=== PATIENT | female | born 1955 | race Caucasian/White ===

== ENCOUNTER 2019-08-31 07:55 | Emergency (ER) | payer OTHER ==
[2019-08-31] MEDS ORDERED: SODIUM CHLORIDE 0.9% 500 ML 500 ML IV STA (07:58)
--- NOTE | 2019-08-31 08:03 | ED ---
General Adult HPI - General Stated complaint: Poss Stroke Time Seen by Provider: 08/31/19 07:55 Source: patient, EMS, RN notes reviewed, old records reviewed - History of Present Illness Initial comments: This is a 63-year-old female who presents to the emergency department with slurred speech. Patient woke up at 5:30 this morning felt fine at 6:30 she started having slurred speech according to the per EMS. 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 Patient states she has a left-sided headache as well. Patient denies any visual disturbance. Patient is very anxious and according to EMS she was hyperventilating at the scene. At this point time there is no other history available. - Related Data Allergies Allergy/AdvReac Type Severity Reaction Status Date / Time No Known Allergies Allergy Verified 08/31/19 08:15 Review of Systems ROS Statement: Those systems with pertinent positive or pertinent negative responses have been documented in the HPI. ROS Other: All systems not noted in ROS Statement are negative. General Exam - General Exam Comments Initial Comments: GENERAL: Patient is well-developed and well-nourished. Patient is nontoxic and well- hydrated and is in mild distress. ENT: Neck is soft and supple. No significant lymphadenopathy is noted. Oropharynx is clear. Moist mucous membranes. Neck has full range of motion without eliciting any pain. EYES: The sclera were anicteric and conjunctiva were pink and moist. Extraocular movements were intact and pupils were equal round and reactive to light. Eyelids were unremarkable. PULMONARY: Unlabored respirations. Good breath sounds bilaterally. No audible rales rhonchi or wheezing was noted. CARDIOVASCULAR: There is a regular rate and rhythm without any murmurs gallops or rubs. ABDOMEN: Soft and nontender with normal bowel sounds. No palpable organomegaly was noted. There is no palpable pulsatile mass. SKIN: Skin is clear with no lesions or rashes and otherwise unremarkable. NEUROLOGIC: Unable to assess orientation since she's not answering all questions because she is so anxious. Difficult to assess if she is altered but states she was altered this morning and not answering questions appropriately. Cranial nerves II through XII are grossly intact. Motor and sensory are also intact and did not notice any decreased auto accessories installer strength on the right. Patient's speech was slurred. MUSCULOSKELETAL: Normal extremities with adequate strength and full range of motion. No lower extremity swelling or edema. No calf tenderness. LYMPHATICS: No significant lymphadenopathy is noted PSYCHIATRIC: Patient is very anxious and tearful. Course Vital Signs 08/31/19 08/31/19 08/31/19 07:59 08:00 08:09 Temperature 98.2 F 98.2 F Pulse Rate 66 66 66 Respiratory 18 18 18 Rate Blood Pressure 119/73 119/73 119/73 O2 Sat by Pulse 98 98 98 Oximetry 08/31/19 08/31/19 08/31/19 08:15 08:21 08:30 Temperature Pulse Rate 62 70 65 Respiratory 18 17 16 Rate Blood Pressure 116/54 124/75 124/78 O2 Sat by Pulse 98 95 93 L Oximetry 08/31/19 08/31/19 08/31/19 09:00 09:30 10:00 Temperature Pulse Rate 79 79 75 Respiratory 17 17 17 Rate Blood Pressure 110/90 138/78 O2 Sat by Pulse 91 L 92 L 93 L Oximetry 08/31/19 08/31/19 08/31/19 10:30 10:38 10:43 Temperature Pulse Rate 81 73 Respiratory 18 18 Rate Blood Pressure 147/71 142/88 O2 Sat by Pulse 87 L 86 L 96 Oximetry 08/31/19 11:13 Temperature 97.8 F Pulse Rate 74 Respiratory 16 Rate Blood Pressure 171/76 O2 Sat by Pulse 92 L Oximetry Medical Decision Making - Medical Decision Making A stroke was called immediately EKG shows normal sinus rhythm at 60 bpm MD interval 162 QRS is 90 QT interval 424 QTC is 424. Patient's EKG shows no ST segment elevation or depression. informed us that the patient been having symptoms of left-sided headache with intermittent confusion over the last 6-8 weeks. Patient also has a past history of lung cancer. I spoke with Dr. Rubio and Dr. Cuellar and they both recommended the patient be transferred so I spoke with [facility] emergency Department at [place] and they accepted the transfer. Patient will be transferred to [facility] in [place] because the requested this. Patient received Decadron while in the emergency department. Patient remained somewhat confused while in the emergency department states this is how she has been on and off for the last 8 weeks. Patient was also very anxious at one point I did give her some Ativan. After arrangements had been made for the patient to be transferred Dale Haley [place] came out and decided to change his mind at which point time we called the [facility] because that is with her wanted the patient to go and was spoke with them over the next hour to an hour and a half and they eventually accepted the patient. However did not allow us to transfer the patient immediately because he did not have a bed available but they stated one bed will become available within an hour. - Lab Data Result diagrams: 08/31/19 08:02 08/31/19 08:02 Lab Results 08/31/19 08/31/19 08/31/19 Range/Units 08:02 08:02 08:02 WBC 7.9 (3.8-10.6) k/uL RBC 4.18 (3.80-5.40) m/uL Hgb 11.5 (11.4-16.0) gm/dL Hct 36.1 (34.0-46.0) % MCV 86.6 (80.0-100.0) fL MCH 27.6 (25.0-35.0) pg MCHC 31.9 (31.0-37.0) g/dL RDW 14.1 (11.5-15.5) % Plt Count 374 (150-450) k/uL Neutrophils % 69 % Lymphocytes % 21 % Monocytes % 4 % Eosinophils % 3 % Basophils % 0 % Neutrophils # 5.4 (1.3-7.7) k/uL Lymphocytes # 1.7 (1.0-4.8) k/uL Monocytes # 0.3 (0-1.0) k/uL Eosinophils # 0.2 (0-0.7) k/uL Basophils # 0.0 (0-0.2) k/uL PT 22.0 H (9.0-12.0) sec INR 2.3 H (<1.2) APTT 36.5 H (22.0-30.0) sec Sodium 137 (137-145) mmol/L Potassium 4.9 (3.5-5.1) mmol/L Chloride 106 (98-107) mmol/L Carbon Dioxide 19 L (22-30) mmol/L Anion Gap 12 mmol/L BUN 26 H (7-17) mg/dL Creatinine 0.81 (0.52-1.04) mg/dL Est GFR (CKD-EPI)AfAm >90 (>60 ml/min/1.73 sqM) Est GFR (CKD-EPI)NonAf 79 (>60 ml/min/1.73 sqM) Glucose 172 H (74-99) mg/dL POC Glucose (mg/dL) (75-99) mg/dL POC Glu Bushing [employer] Operator ID Calcium 9.5 (8.4-10.2) mg/dL Total Bilirubin 0.3 (0.2-1.3) mg/dL AST 24 (14-36) U/L ALT 16 (4-34) U/L Alkaline Phosphatase 102 (38-126) U/L Troponin I (0.000-0.034) ng/mL Total Protein 7.8 (6.3-8.2) g/dL Albumin 4.2 (3.5-5.0) g/dL Urine Color Urine Appearance (Clear) Urine pH (5.0-8.0) Ur Specific Orange (1.001-1.035) Urine Protein (Negative) Urine Glucose (UA) (Negative) Urine Ketones (Negative) Urine Blood (Negative) Urine Nitrite (Negative) Urine Bilirubin (Negative) Urine Urobilinogen (<2.0) mg/dL Ur Leukocyte Esterase (Negative) 08/31/19 08/31/19 08/31/19 Range/Units 08:02 08:35 08:37 WBC (3.8-10.6) k/uL RBC (3.80-5.40) m/uL Hgb (11.4-16.0) gm/dL Hct (34.0-46.0) % MCV (80.0-100.0) fL MCH (25.0-35.0) pg MCHC (31.0-37.0) g/dL RDW (11.5-15.5) % Plt Count (150-450) k/uL Neutrophils % % Lymphocytes % % Monocytes % % Eosinophils % % Basophils % % Neutrophils # (1.3-7.7) k/uL Lymphocytes # (1.0-4.8) k/uL Monocytes # (0-1.0) k/uL Eosinophils # (0-0.7) k/uL Basophils # (0-0.2) k/uL PT (9.0-12.0) sec INR (<1.2) APTT (22.0-30.0) sec Sodium (137-145) mmol/L Potassium (3.5-5.1) mmol/L Chloride (98-107) mmol/L Carbon Dioxide (22-30) mmol/L Anion Gap mmol/L BUN (7-17) mg/dL Creatinine (0.52-1.04) mg/dL Est GFR (CKD-EPI)AfAm (>60 ml/min/1.73 sqM) Est GFR (CKD-EPI)NonAf (>60 ml/min/1.73 sqM) Glucose (74-99) mg/dL POC Glucose (mg/dL) 160 H (75-99) mg/dL POC Glu Bushing [employer] Operator ID Bowling, Ti[place] Calcium (8.4-10.2) mg/dL Total Bilirubin (0.2-1.3) mg/dL AST (14-36) U/L ALT (4-34) U/L Alkaline Phosphatase (38-126) U/L Troponin I <0.012 (0.000-0.034) ng/mL Total Protein (6.3-8.2) g/dL Albumin (3.5-5.0) g/dL Urine Color Light Yellow Urine Appearance Clear (Clear) Urine pH 5.0 (5.0-8.0) Ur Specific Orange 1.010 (1.001-1.035) Urine Protein Negative (Negative) Urine Glucose (UA) Negative (Negative) Urine Ketones Negative (Negative) Urine Blood Negative (Negative) Urine Nitrite Negative (Negative) Urine Bilirubin Negative (Negative) Urine Urobilinogen <2.0 (<2.0) mg/dL Ur Leukocyte Esterase Negative (Negative) Critical Care Time Critical Care Time: Yes Total Critical Care Time: 35 Disposition Clinical Impression: Intracerebral mass Disposition: OTHER INSTITUTION NOT DEFINED Referrals: Luis Marcelo DO [Primary Care Provider] - 1-2 days Time of Disposition: 09:52 - Out of Hospital Transfer - Req. Specs Out of Hospital Transfer - Requested Specifics: Other Emergency Center ([facility])
[2019-08-31 08:16] LABS: Basophils % (A) 0 %; Eosinophils # (A) 0.2 k/uL (0-0.7); Eosinophils % (A) 3 %; HCT 36.1 % (34.0-46.0); HGB 11.5 gm/dL (11.4-16.0); Lymphocytes # (A) 1.7 k/uL (1.0-4.8); Lymphocytes % (A) 21 %; MCH 27.6 pg (25.0-35.0); MCHC 31.9 g/dL (31.0-37.0); MCV 86.6 fL (80.0-100.0); Mean Platelet Volume 7.2; Monocytes # (A) 0.3 k/uL (0-1.0); Monocytes % (A) 4 %; Neutrophils # (A) 5.4 k/uL (1.3-7.7); Neutrophils % (A) 69 %; Platelet Count 374 k/uL (150-450); RBC 4.18 m/uL (3.80-5.40); RDW 14.1 % (11.5-15.5); WBC 7.9 k/uL (3.8-10.6)
[2019-08-31 08:27] LABS: INR 2.3 (<1.2); Partial Thromboplastin Time 36.5 sec (22.0-30.0)
--- NOTE | 2019-08-31 08:28 | CT ---
EXAMINATION TYPE: CT brain wo con for TPA DATE OF EXAM: 08/31/2019 HISTORY: Slurred speech, MARAVILLA CT DLP: 1130.8 mGycm. Automated Exposure Control for Dose Reduction was Utilized. TECHNIQUE: CT scan of the head is performed without contrast. COMPARISON: None. FINDINGS: There is no acute intracranial hemorrhage identified. There is suspicious left parietal i ntraparenchymal lesion measuring 1.6 x 2.0 cm AP diameter axial image 35 x 2.0 cm craniocaudal diamet er coronal image 53 with surrounding hypodensity or vasogenic edema. Midline shift up to nearly 7 mm at axial image 33 noted. Ventricles and sulci are normal in size. The globes are intact and the visu alized sinuses are clear. IMPRESSION: No acute intracranial hemorrhage or midline shift. There is 2.0 cm left parietal intrap arenchymal mass with local mass effect and midline shift. Neoplasm is strongly suspected. Metastatic disease would be favored. Clinical correlation and follow-up nonemergent contrast enhanced MRI study is advised.
[2019-08-31 08:34] LABS: ALT 16 U/L (4-34); AST 24 U/L (14-36); African American GFR (CKD) >90 (>60 ml/min/1.73 sqM); Albumin 4.2 g/dL (3.5-5.0); Alkaline Phosphatase 102 U/L (38-126); Anion Gap 12 mmol/L; Blood Urea Nitrogen 26 mg/dL (7-17); Calcium 9.5 mg/dL (8.4-10.2); Carbon Dioxide 19 mmol/L (22-30); Chloride 106 mmol/L (98-107); Glucose 172 mg/dL (74-99); Non-African American GFR(CKD) 79 (>60 ml/min/1.73 sqM); Potassium 4.9 mmol/L (3.5-5.1); Sodium 137 mmol/L (137-145); Total Bilirubin 0.3 mg/dL (0.2-1.3); Total Protein 7.8 g/dL (6.3-8.2)
[2019-08-31 08:39] LABS: Glucose,Whole Blood 160 mg/dL (75-99)
[2019-08-31 08:42] LABS: Appearance,Urine Clear (Clear); Bilirubin,Urine Negative (Negative); Blood,Urine Negative (Negative); Color,Urine Light Yellow; Glucose,Urine (UA) Negative (Negative); Ketones,Urine Negative (Negative); Leukocyte Esterase,Urine Negative (Negative); Nitrite,Urine Negative (Negative); Protein,Urine Negative (Negative); Urobilinogen,Urine <2.0 mg/dL (<2.0)
[2019-08-31] MEDS ORDERED: DEXAMETHASONE SOD PHOSPHATE 20 MG in DEXTROSE 5% IN WATER 50 ML IV STA ×2 (08:51)
[2019-08-31] MEDS ORDERED: LORazepam 2 MG/ML INJ IV STA (09:02)
--- NOTE | 2019-08-31 09:29 | CT ---
EXAMINATION TYPE: CT angio head neck DATE OF EXAM: 08/31/2019 HISTORY: MARAVILLA, slurred speech COMPARISON: CT DLP: 934.8 mGycm. Automated Exposure Control for Dose Reduction was Utilized. TECHNIQUE: CTA scan of the neck is performed with IV Contrast, patient injected with 65 mL of Isovue 370, axial images are obtained, coronal and sagittal reformatted images are reviewed. Three-D recons tructed images are created on an independent workstation and reviewed. Source images are reviewed. FINDINGS: Carotid/Vascular Structures: There is a three-vessel arch. Vertebral arteries are codominant. Common carotid arteries bifurcate normally into internal and external Cervical of Tran: Vertebral basilar system appears normal. Posterior cerebral vasculature is unrema rkable. Internal carotid arteries bifurcate normally into A1 and M1 segments. A2 segments are normal. The anterior communicating artery is patent. Left Posterior communicating artery is patent. Right po sterior communicating artery is patent. Other: Lung apices appear clear. Portion of the thyroid visualized is normal. Patient suspected neoplasm in the left parietal-occipital junction is faintly peripherally enhancing with irregular internal border. The vasogenic edema within the brain with some minimal midline shift and compression lateral ventricle is evident. IMPRESSION: 1. No flow-limiting stenosis bilateral carotid bifurcations. 2. Normal upper [place] of Tran 3. Suspected left parietal-occipital junction mass.
--- NOTE | 2019-08-31 09:30 | XR ---
EXAMINATION TYPE: XR chest 2V DATE OF EXAM: 08/31/2019 COMPARISON: None INDICATION: Slurred speech inability to articulate TECHNIQUE: Frontal and lateral views of the chest are obtained. FINDINGS: The heart size is mildly prominent. The pulmonary vasculature is normal. No suspicious consolidations or infiltrates are evident. IMPRESSION: 1. No acute pulmonary process.
[2019-08-31] MEDS ORDERED: ONDANSETRON 4 MG/2 ML VIAL IVP STA (10:27)
[2019-08-31 12:05] VITALS: TEMP 98.7
[2019-08-31 14:17] VITALS: BP 94/55; PULSE 70; RESP 18
== END 2019-08-31 13:54 | disposition other institution (70) ==
LOC: EC 07:55
DX: G93.89 Other specified disorders of brain (principal); R51 Headache; R41.0 Disorientation, unspecified; R47.81 Slurred speech; R53.1 Weakness; R06.4 Hyperventilation; Z85.118 Personal history of other malignant neoplasm of bronchus and lung
CPT/HCPCS: 36415; 93005; 80053; 84484; 85025; 85610; 85730; 81003; 71046; 70496; 70450; 70498; 96365; 96375; 96361; 99291; J1100; J2405; Q9967

== ENCOUNTER 2019-09-19 03:03 | Emergency (ER) | payer OTHER ==
[2019-09-19] MEDS ORDERED: DEXAMETHASONE SOD PHOSPHATE 10 MG/ML 1 ML VIAL IV STA (03:06)
[2019-09-19] MEDS ORDERED: Kcentra PER PHARMACY 1 EACH MISC MISCELLANE PRN (03:06)
[2019-09-19] MEDS ORDERED: LABETALOL 5 MG/ML VIAL MDV IVP STA (03:06)
[2019-09-19] MEDS ORDERED: SODIUM CHLORIDE 0.9% 1,000 ML IV STA ×2 (03:06→05:09)
[2019-09-19 03:10] LABS: Glucose,Whole Blood 372 mg/dL (75-99)
--- NOTE | 2019-09-19 03:12 | ED ---
Altered Mental Status HPI - General Stated Complaint: poss stroke Time Seen by Provider: 09/19/19 03:06 Source: RN notes reviewed, old records reviewed Mode of arrival: EMS Limitations: altered mental status, physical limitation - History of Present Illness Initial Comments: This is a 63-year-old female presents DF for evaluation of unresponsiveness and new seizure-like activity. Patient is a complex recent medical history including excision of brain mass. Patient excision of brain mass to [facility] earlier this month. EMS was called patient's also she has had slurred speech throughout the day patient had slurred speech against night unable to find words did call EMS patient began to become decreased level responsiveness EMS arrived patient did have seizure-like activity prior to arrival in emergency department. Patient was upon postictal unable to speak here in the ER never any complaints test in her EMS never complaints chest pain headache or abdominal pain. Again patient is recently postop of brain tumor excision. History obtained from EMS and patient's prior charting MD Complaint: altered mental status, confusion, decreased responsiveness, other (?postIctal?) -: hour(s) Severity: severe Consistency of Symptoms: getting worse Context: seizure disorder (no history, had seizure today), other (slurred speech) Associated Symptoms: denies other symptoms (unable to provide history) - Related Data Allergies Allergy/AdvReac Type Severity Reaction Status Date / Time No Known Allergies Allergy Verified 08/31/19 08:15 Review of Systems ROS Statement: Those systems with pertinent positive or pertinent negative responses have been documented in the HPI. ROS Other: All systems not noted in ROS Statement are negative. Past Medical History Past Medical History: Atrial Fibrillation, Cancer Additional Past Medical History / Comment(s): Lung CA 2018 History of Any Multi-Drug Resistant Organisms: None Reported Past Surgical History: Cardiac Ablation, Section, Hysterectomy Additional Past Surgical History / Comment(s): Upper left lung lobectomy 2018 Past Psychological History: No Psychological Hx Reported Smoking Status: Never smoker Past Alcohol Use History: None Reported Past Drug Use History: None Reported General Exam Limitations: altered mental status, physical limitation General appearance: obtunded, in distress, obese Head exam: Present: atraumatic, normocephalic, normal inspection Eye exam: Present: normal appearance, PERRL, EOMI. Absent: scleral icterus, conjunctival injection, periorbital swelling ENT exam: Present: normal exam, mucous membranes moist Neck exam: Present: normal inspection. Absent: tenderness, meningismus, lym phadenopathy Respiratory exam: Present: decreased breath sounds. Absent: respiratory distress, wheezes, rales, rhonchi, stridor Cardiovascular Exam: Present: normal rhythm, tachycardia, normal heart sounds. Absent: systolic murmur, diastolic murmur, rubs, gallop, clicks GI/Abdominal exam: Present: soft, normal bowel sounds. Absent: distended, tenderness, guarding, rebound, rigid Extremities exam: Present: normal inspection, full ROM, normal capillary refill. Absent: tenderness, pedal edema, joint swelling, calf tenderness Back exam: Present: normal inspection Neurological exam: Present: altered Skin exam: Present: warm, dry, intact, normal color. Absent: rash Course Vital Signs 09/19/19 09/19/19 09/19/19 03:05 03:38 04:36 Temperature 97.5 F L Pulse Rate 131 H 37 L 60 Respiratory 20 14 16 Rate Blood Pressure 203/98 62/42 68/28 O2 Sat by Pulse 100 Oximetry 09/19/19 09/19/19 09/19/19 04:40 04:48 04:50 Temperature 99.6 F Pulse Rate 66 61 60 Respiratory 18 16 16 Rate Blood Pressure 110/75 80/43 66/34 O2 Sat by Pulse 98 Oximetry 09/19/19 09/19/19 09/19/19 05:00 05:10 05:20 Temperature 99.8 F H Pulse Rate 66 63 67 Respiratory 18 18 18 Rate Blood Pressure 80/43 93/41 88/39 O2 Sat by Pulse 98 99 100 Oximetry 09/19/19 09/19/19 09/19/19 05:30 05:40 05:50 Temperature Pulse Rate 69 60 61 Respiratory 20 18 16 Rate Blood Pressure 100/35 95/52 100/45 O2 Sat by Pulse 99 100 100 Oximetry 09/19/19 09/19/19 09/19/19 06:00 06:10 06:20 Temperature 99.1 F Pulse Rate 61 80 82 Respiratory 14 18 16 Rate Blood Pressure 116/51 107/46 108/66 O2 Sat by Pulse 100 100 100 Oximetry 09/19/19 09/19/19 09/19/19 06:30 06:45 07:00 Temperature Pulse Rate 84 80 83 Respiratory 23 20 24 Rate Blood Pressure 116/51 119/61 112/60 O2 Sat by Pulse 100 100 100 Oximetry 09/19/19 09/19/19 09/19/19 07:15 07:30 07:45 Temperature Pulse Rate 79 86 90 Respiratory 24 24 23 Rate Blood Pressure 107/51 112/55 127/58 O2 Sat by Pulse 100 100 99 Oximetry 09/19/19 08:00 Temperature Pulse Rate 80 Respiratory 24 Rate Blood Pressure 150/72 O2 Sat by Pulse 100 Oximetry - Reevaluation(s) Reevaluation #1: 09/19/19 03:15 Medical record is reviewed as well as prior ER visit Patient intubated did due to inability to protect her airway Patient immediately assessed emergency department sent to computed tomography scan for brain for new onset seizure as well as having recent brain surgery Patient has normal computed tomography scan of the head and decision is made to CTA neck arteries as well as anterior chest abdomen pelvis After CT of brain patient had significantly bradycardic episode and patient was bradycardic with low blood pressure Central line is placed and patient is currently referred for low blood pressure heart rate EKG is repeated showing junctional rhythm no heart block Patient still showing no signs of significant improvement neurologically Reevaluation #2: 09/19/19 05:17 Spoke patient's family is not bedside, questions are answered poor prognosis guarded prognosis is reiterated 09/19/19 05:21 Patient has initial blood pressure of 200 over 100s with severe tachycardia 130s An episode of low blood pressure 70s over 50s with bradycardia in the 30s to 40s Reevaluation #3: 09/19/19 05:17 Lactic acid 17 patient has had 2 seizures prior to arrival Reevaluation #4: 09/19/19 05:52 Patient did state patient has been having episodic slurred speech and he believes didn't show some seizure-like activity this night in bed - Consultations Consultation #1: Spoke with radiologist infrastructure solutions architect pain CT looks like edema has resolved and symptoms are much improved Procedures - Central Line Placement Left Femoral Consent Obtained: verbal consent Patient Placed on Monitor/Pulse Ox: Yes Prep: mask, gown, gloves Central Line Prep: Povidone-Iodine 1% Ultrasound Used for Placement: No Central Line Lumen Inserted: triple Bloods Obtained for Lab: No Central Line Position: sutured in place with 2-0 silk, sutured in place with nylon Post Procedure X-Ray: tip of catheter in good position Patient Tolerated Procedure: well Complications: none - Intubation Sedative: Versed Paralytic: Rocuronium Laryngoscope: Juan Size: 4 ET Tube Size: 7.5 ET Tube Uncuffed: No Tube Secured Location: teeth Tube Placement Confirmation: visualized tube passing through cords, equal breath sounds bilaterally, no breath sounds over epigastrium Patient Tolerated Procedure: well Intubation Complications: none Medical Decision Making - Medical Decision Making 63 female DF for evaluation patient presents today for evaluation regards to slurred speech altered mental status and recent surgery of removal of brain tumor excision, patient comes in unresponsive history was obtained by EMS. Patient was intubated due to airway protection Given Due To. Of Low Blood Pressure with Low Heart Rate. Again Patient Does Have Recent Inpatient Hospitalization No Fever per the Story Patient's Surgeon Speech Today and Came to ER after Seizure-Like Activity Patient to Return to Baseline, Patient Be Transferred to [facility] Where Original Surgery Was Done - Lab Data Result diagrams: 09/19/19 03:11 09/19/19 03:11 Lab Results 09/19/19 09/19/19 09/19/19 Range/Units 03:08 03:11 03:11 WBC 12.8 H (3.8-10.6) k/uL RBC 4.54 (3.80-5.40) m/uL Hgb 12.5 (11.4-16.0) gm/dL Hct 43.1 (34.0-46.0) % MCV 95.0 D (80.0-100.0) fL MCH 27.6 (25.0-35.0) pg MCHC 29.1 L (31.0-37.0) g/dL RDW 14.2 (11.5-15.5) % Plt Count 325 (150-450) k/uL Neutrophils % 65 % Lymphocytes % 25 % Monocytes % 5 % Eosinophils % 2 % Basophils % 1 % Neutrophils # 8.3 H (1.3-7.7) k/uL Lymphocytes # 3.2 (1.0-4.8) k/uL Monocytes # 0.7 (0-1.0) k/uL Eosinophils # 0.2 (0-0.7) k/uL Basophils # 0.1 (0-0.2) k/uL Hypochromasia Marked PT 9.9 (9.0-12.0) sec INR 0.9 (<1.2) APTT 23.5 (22.0-30.0) sec Fibrinogen (200-500) mg/dL D-Dimer (<0.60) mg/L FEU Sample Site ABG pH (7.35-7.45) ABG pCO2 (35-45) mmHg ABG pO2 (83-108) mmHg ABG HCO3 (21-25) mmol/L ABG Total CO2 (19-24) mmol/L ABG O2 Saturation (94-97) % ABG Base Excess mmol/L David Test FiO2 % Sodium (137-145) mmol/L Potassium (3.5-5.1) mmol/L Chloride (98-107) mmol/L Carbon Dioxide (22-30) mmol/L Anion Gap mmol/L BUN (7-17) mg/dL Creatinine (0.52-1.04) mg/dL Est GFR (CKD-EPI)AfAm (>60 ml/min/1.73 sqM) Est GFR (CKD-EPI)NonAf (>60 ml/min/1.73 sqM) Glucose (74-99) mg/dL POC Glucose (mg/dL) 372 H (75-99) mg/dL POC Glu Member Of Technical Staff ID Mana, Brigitte Lactic Ac Sepsis Rflx Plasma Lactic Acid Neel (0.7-2.0) mmol/L Calcium (8.4-10.2) mg/dL Phosphorus (2.5-4.5) mg/dL Magnesium (1.6-2.3) mg/dL Total Bilirubin (0.2-1.3) mg/dL AST (14-36) U/L ALT (4-34) U/L Alkaline Phosphatase (38-126) U/L Lactate Dehydrogenase (313-618) U/L Creatine Kinase (30-135) U/L Troponin I (0.000-0.034) ng/mL C-Reactive Protein (<10.0) mg/L Total Protein (6.3-8.2) g/dL Albumin (3.5-5.0) g/dL Urine Color Urine Appearance (Clear) Urine pH (5.0-8.0) Ur Specific [place] (1.001-1.035) Urine Protein (Negative) Urine Glucose (UA) (Negative) Urine Ketones (Negative) Urine Blood (Negative) Urine Nitrite (Negative) Urine Bilirubin (Negative) Urine Urobilinogen (<2.0) mg/dL Ur Leukocyte Esterase (Negative) Urine RBC (0-5) /hpf Urine WBC (0-5) /hpf Ur Squamous Epith Cells (0-4) /hpf Urine Bacteria (None) /hpf Salicylates mg/dL Urine Opiates Screen (NotDetected) Ur Oxycodone Screen (NotDetected) Urine Methadone Screen (NotDetected) Ur Propoxyphene Screen (NotDetected) Acetaminophen ug/mL Ur Barbiturates Screen (NotDetected) U Tricyclic Antidepress (NotDetected) Ur Phencyclidine Scrn (NotDetected) Ur Amphetamines Screen (NotDetected) U Methamphetamines Scrn (NotDetected) U Benzodiazepines Scrn (NotDetected) Urine Cocaine Screen (NotDetected) U Marijuana (THC) Screen (NotDetected) 09/19/19 09/19/19 09/19/19 Range/Units 03:11 03:11 03:11 WBC (3.8-10.6) k/uL RBC (3.80-5.40) m/uL Hgb (11.4-16.0) gm/dL Hct (34.0-46.0) % MCV (80.0-100.0) fL MCH (25.0-35.0) pg MCHC (31.0-37.0) g/dL RDW (11.5-15.5) % Plt Count (150-450) k/uL Neutrophils % % Lymphocytes % % Monocytes % % Eosinophils % % Basophils % % Neutrophils # (1.3-7.7) k/uL Lymphocytes # (1.0-4.8) k/uL Monocytes # (0-1.0) k/uL Eosinophils # (0-0.7) k/uL Basophils # (0-0.2) k/uL Hypochromasia PT (9.0-12.0) sec INR (<1.2) APTT (22.0-30.0) sec Fibrinogen (200-500) mg/dL D-Dimer (<0.60) mg/L FEU Sample Site ABG pH (7.35-7.45) ABG pCO2 (35-45) mmHg ABG pO2 (83-108) mmHg ABG HCO3 (21-25) mmol/L ABG Total CO2 (19-24) mmol/L ABG O2 Saturation (94-97) % ABG Base Excess mmol/L David Test FiO2 % Sodium 141 (137-145) mmol/L Potassium 4.7 (3.5-5.1) mmol/L Chloride 105 (98-107) mmol/L Carbon Dioxide 12 L (22-30) mmol/L Anion Gap 24 mmol/L BUN 18 H (7-17) mg/dL Creatinine 1.13 H (0.52-1.04) mg/dL Est GFR (CKD-EPI)AfAm 60 (>60 ml/min/1.73 sqM) Est GFR (CKD-EPI)NonAf 52 (>60 ml/min/1.73 sqM) Glucose 374 H (74-99) mg/dL POC Glucose (mg/dL) (75-99) mg/dL POC Glu Member Of Technical Staff ID Lactic Ac Sepsis Rflx Plasma Lactic Acid Neel 17.6 H* (0.7-2.0) mmol/L Calcium 9.5 (8.4-10.2) mg/dL Phosphorus 4.6 H (2.5-4.5) mg/dL Magnesium 1.7 (1.6-2.3) mg/dL Total Bilirubin 0.4 (0.2-1.3) mg/dL AST 24 (14-36) U/L ALT 27 (4-34) U/L Alkaline Phosphatase 110 (38-126) U/L Lactate Dehydrogenase (313-618) U/L Creatine Kinase 62 (30-135) U/L Troponin I 0.016 (0.000-0.034) ng/mL C-Reactive Protein (<10.0) mg/L Total Protein 7.7 (6.3-8.2) g/dL Albumin 4.6 (3.5-5.0) g/dL Urine Color Urine Appearance (Clear) Urine pH (5.0-8.0) Ur Specific [place] (1.001-1.035) Urine Protein (Negative) Urine Glucose (UA) (Negative) Urine Ketones (Negative) Urine Blood (Negative) Urine Nitrite (Negative) Urine Bilirubin (Negative) Urine Urobilinogen (<2.0) mg/dL Ur Leukocyte Esterase (Negative) Urine RBC (0-5) /hpf Urine WBC (0-5) /hpf Ur Squamous Epith Cells (0-4) /hpf Urine Bacteria (None) /hpf Salicylates mg/dL Urine Opiates Screen (NotDetected) Ur Oxycodone Screen (NotDetected) Urine Methadone Screen (NotDetected) Ur Propoxyphene Screen (NotDetected) Acetaminophen ug/mL Ur Barbiturates Screen (NotDetected) U Tricyclic Antidepress (NotDetected) Ur Phencyclidine Scrn (NotDetected) Ur Amphetamines Screen (NotDetected) U Methamphetamines Scrn (NotDetected) U Benzodiazepines Scrn (NotDetected) Urine Cocaine Screen (NotDetected) U Marijuana (THC) Screen (NotDetected) 09/19/19 09/19/19 09/19/19 Range/Units 03:11 03:11 04:04 WBC (3.8-10.6) k/uL RBC (3.80-5.40) m/uL Hgb (11.4-16.0) gm/dL Hct (34.0-46.0) % MCV (80.0-100.0) fL MCH (25.0-35.0) pg MCHC (31.0-37.0) g/dL RDW (11.5-15.5) % Plt Count (150-450) k/uL Neutrophils % % Lymphocytes % % Monocytes % % Eosinophils % % Basophils % % Neutrophils # (1.3-7.7) k/uL Lymphocytes # (1.0-4.8) k/uL Monocytes # (0-1.0) k/uL Eosinophils # (0-0.7) k/uL Basophils # (0-0.2) k/uL Hypochromasia PT (9.0-12.0) sec INR (<1.2) APTT (22.0-30.0) sec Fibrinogen 476 (200-500) mg/dL D-Dimer 1.16 H (<0.60) mg/L FEU Sample Site ABG pH (7.35-7.45) ABG pCO2 (35-45) mmHg ABG pO2 (83-108) mmHg ABG HCO3 (21-25) mmol/L ABG Total CO2 (19-24) mmol/L ABG O2 Saturation (94-97) % ABG Base Excess mmol/L David Test FiO2 % Sodium (137-145) mmol/L Potassium (3.5-5.1) mmol/L Chloride (98-107) mmol/L Carbon Dioxide (22-30) mmol/L Anion Gap mmol/L BUN (7-17) mg/dL Creatinine (0.52-1.04) mg/dL Est GFR (CKD-EPI)AfAm (>60 ml/min/1.73 sqM) Est GFR (CKD-EPI)NonAf (>60 ml/min/1.73 sqM) Glucose (74-99) mg/dL POC Glucose (mg/dL) (75-99) mg/dL POC Glu Member Of Technical Staff ID Lactic Ac Sepsis Rflx Y Plasma Lactic Acid Neel (0.7-2.0) mmol/L Calcium (8.4-10.2) mg/dL Phosphorus (2.5-4.5) mg/dL Magnesium (1.6-2.3) mg/dL Total Bilirubin (0.2-1.3) mg/dL AST (14-36) U/L ALT (4-34) U/L Alkaline Phosphatase (38-126) U/L Lactate Dehydrogenase 510 (313-618) U/L Creatine Kinase (30-135) U/L Troponin I (0.000-0.034) ng/mL C-Reactive Protein 22.3 H (<10.0) mg/L Total Protein (6.3-8.2) g/dL Albumin (3.5-5.0) g/dL Urine Color Urine Appearance (Clear) Urine pH (5.0-8.0) Ur Specific [place] (1.001-1.035) Urine Protein (Negative) Urine Glucose (UA) (Negative) Urine Ketones (Negative) Urine Blood (Negative) Urine Nitrite (Negative) Urine Bilirubin (Negative) Urine Urobilinogen (<2.0) mg/dL Ur Leukocyte Esterase (Negative) Urine RBC (0-5) /hpf Urine WBC (0-5) /hpf Ur Squamous Epith Cells (0-4) /hpf Urine Bacteria (None) /hpf Salicylates <1.0 mg/dL Urine Opiates Screen (NotDetected) Ur Oxycodone Screen (NotDetected) Urine Methadone Screen (NotDetected) Ur Propoxyphene Screen (NotDetected) Acetaminophen <10.0 ug/mL Ur Barbiturates Screen (NotDetected) U Tricyclic Antidepress (NotDetected) Ur Phencyclidine Scrn (NotDetected) Ur Amphetamines Screen (NotDetected) U Methamphetamines Scrn (NotDetected) U Benzodiazepines Scrn (NotDetected) Urine Cocaine Screen (NotDetected) U Marijuana (THC) Screen (NotDetected) 09/19/19 09/19/19 Range/Units 04:51 04:54 WBC (3.8-10.6) k/uL RBC (3.80-5.40) m/uL Hgb (11.4-16.0) gm/dL Hct (34.0-46.0) % MCV (80.0-100.0) fL MCH (25.0-35.0) pg MCHC (31.0-37.0) g/dL RDW (11.5-15.5) % Plt Count (150-450) k/uL Neutrophils % % Lymphocytes % % Monocytes % % Eosinophils % % Basophils % % Neutrophils # (1.3-7.7) k/uL Lymphocytes # (1.0-4.8) k/uL Monocytes # (0-1.0) k/uL Eosinophils # (0-0.7) k/uL Basophils # (0-0.2) k/uL Hypochromasia PT (9.0-12.0) sec INR (<1.2) APTT (22.0-30.0) sec Fibrinogen (200-500) mg/dL D-Dimer (<0.60) mg/L FEU Sample Site rbrach ABG pH 7.10 L* (7.35-7.45) ABG pCO2 38 (35-45) mmHg ABG pO2 247 H (83-108) mmHg ABG HCO3 12 L (21-25) mmol/L ABG Total CO2 13 L (19-24) mmol/L ABG O2 Saturation 98.9 H (94-97) % ABG Base Excess -18.1 mmol/L David Test Yes FiO2 100 % Sodium (137-145) mmol/L Potassium (3.5-5.1) mmol/L Chloride (98-107) mmol/L Carbon Dioxide (22-30) mmol/L Anion Gap mmol/L BUN (7-17) mg/dL Creatinine (0.52-1.04) mg/dL Est GFR (CKD-EPI)AfAm (>60 ml/min/1.73 sqM) Est GFR (CKD-EPI)NonAf (>60 ml/min/1.73 sqM) Glucose (74-99) mg/dL POC Glucose (mg/dL) (75-99) mg/dL POC Glu Member Of Technical Staff ID Lactic Ac Sepsis Rflx Plasma Lactic Acid Neel (0.7-2.0) mmol/L Calcium (8.4-10.2) mg/dL Phosphorus (2.5-4.5) mg/dL Magnesium (1.6-2.3) mg/dL Total Bilirubin (0.2-1.3) mg/dL AST (14-36) U/L ALT (4-34) U/L Alkaline Phosphatase (38-126) U/L Lactate Dehydrogenase (313-618) U/L Creatine Kinase (30-135) U/L Troponin I (0.000-0.034) ng/mL C-Reactive Protein (<10.0) mg/L Total Protein (6.3-8.2) g/dL Albumin (3.5-5.0) g/dL Urine Color Yellow Urine Appearance Cloudy H (Clear) Urine pH 5.5 (5.0-8.0) Ur Specific [place] 1.016 (1.001-1.035) Urine Protein Trace H (Negative) Urine Glucose (UA) 3+ H (Negative) Urine Ketones 1+ H (Negative) Urine Blood Negative (Negative) Urine Nitrite Positive H (Negative) Urine Bilirubin Negative (Negative) Urine Urobilinogen 2.0 (<2.0) mg/dL Ur Leukocyte Esterase Negative (Negative) Urine RBC 1 (0-5) /hpf Urine WBC 3 (0-5) /hpf Ur Squamous Epith Cells <1 (0-4) /hpf Urine Bacteria Occasional H (None) /hpf Salicylates mg/dL Urine Opiates Screen Not Detected (NotDetected) Ur Oxycodone Screen Not Detected (NotDetected) Urine Methadone Screen Not Detected (NotDetected) Ur Propoxyphene Screen Not Detected (NotDetected) Acetaminophen ug/mL Ur Barbiturates Screen Not Detected (NotDetected) U Tricyclic Antidepress Not Detected (NotDetected) Ur Phencyclidine Scrn Not Detected (NotDetected) Ur Amphetamines Screen Not Detected (NotDetected) U Methamphetamines Scrn Not Detected (NotDetected) U Benzodiazepines Scrn Not Detected (NotDetected) Urine Cocaine Screen Not Detected (NotDetected) U Marijuana (THC) Screen Not Detected (NotDetected) - Radiology Data Radiology results: report reviewed (CT brain C-spine CTA had neck chest abdomen and pelvis does show bilateral patchy infiltrate, chest x-ray showing positive ET tube placement), image reviewed Critical Care Time Critical Care Time: Yes Total Critical Care Time: 95 Disposition Clinical Impression: Altered mental status, New onset seizure, Acute respiratory failure, Postictal state, Delirium due to general medical condition, Lactic acidosis, Status epilepticus Narrative: postOp Excision of Intracerebral Mass Disposition: OTHER INSTITUTION NOT DEFINED Condition: Critical Is patient prescribed a controlled substance at d/c from ED?: No Referrals: Luis Marcelo DO [Primary Care Provider] - 1-2 days - Out of Hospital Transfer - Req. Specs Out of Hospital Transfer - Requested Specifics: Other Emergency Center ([facility])
[2019-09-19] MEDS ORDERED: levETIRAcetam IV 1,500 MG in SALINE 1 100ML.BAG IVPB ONE (03:15)
[2019-09-19] MEDS ORDERED: LIDOCAINE 2% SYG (PF) 100 MG/5 ML IV ONE (03:16)
[2019-09-19] MEDS: SUCCINYLCHOLINE CHLORIDE VIAL 200 MG/10 ML VIAL IV STA ×3 (03:24→05:16)
--- NOTE | 2019-09-19 03:32 | CT ---
EXAMINATION TYPE: CT brain wo con for TPA DATE OF EXAM: 09/19/2019 COMPARISON: 08/31/2019 HISTORY: AMS R/O CVA CT DLP: 1150.4 mGycm Automated exposure control for dose reduction was used. There is gerber and white matter hypodensity left parietal lobe and left posterior temporal lobe. There is left posterior temporal craniotomy defect. There is no midline shift. There is no sign of intracr anial hemorrhage. There is 2.6 x 2 cm hypodense rounded area left posterior temporal lobe at the gerber -white matter junction consistent with postsurgical changes. IMPRESSION: Postsurgical changes with white matter edema in the left parietal and left posterior temporal lobe an d apparent biopsy or excision of rounded 1.6 cm mass at the left posterior temporal lobe. Rounded are a of fluid density at the surgery site. There is overall decrease in the white matter tumor related e amari in the left cerebral hemisphere compared to exam before the surgery.
[2019-09-19 03:34] LABS: Basophils # (A) 0.1 k/uL (0-0.2); Basophils % (A) 1 %; Eosinophils # (A) 0.2 k/uL (0-0.7); Eosinophils % (A) 2 %; HCT 43.1 % (34.0-46.0); HGB 12.5 gm/dL (11.4-16.0); Hypochromasia Marked; Lymphocytes # (A) 3.2 k/uL (1.0-4.8); Lymphocytes % (A) 25 %; MCH 27.6 pg (25.0-35.0); MCHC 29.1 g/dL (31.0-37.0); Mean Platelet Volume 8.3; Monocytes # (A) 0.7 k/uL (0-1.0); Monocytes % (A) 5 %; Neutrophils # (A) 8.3 k/uL (1.3-7.7); Neutrophils % (A) 65 %; Platelet Count 325 k/uL (150-450); RBC 4.54 m/uL (3.80-5.40); RDW 14.2 % (11.5-15.5); WBC 12.8 k/uL (3.8-10.6)
[2019-09-19] MEDS ORDERED: NOREPINEPHRINE 4 MG in SODIUM CHLORIDE 0.9% 250 ML IV SCH (03:45)
[2019-09-19] MEDS ORDERED: NOREPINEPHRINE 32 MG in SODIUM CHLORIDE 0.9% 218 ML IV SCH (03:45)
[2019-09-19 03:56] LABS: Albumin 4.6 g/dL (3.5-5.0); Calcium 9.5 mg/dL (8.4-10.2); Magnesium 1.7 mg/dL (1.6-2.3); Phosphorus 4.6 mg/dL (2.5-4.5); Potassium 4.7 mmol/L (3.5-5.1); Total Bilirubin 0.4 mg/dL (0.2-1.3); Total Protein 7.7 g/dL (6.3-8.2)
[2019-09-19 04:13] LABS: INR 0.9 (<1.2); Partial Thromboplastin Time 23.5 sec (22.0-30.0); Prothrombin Time 9.9 sec (9.0-12.0)
[2019-09-19] MEDS ORDERED: MIDAZOLAM 1 MG/ML 5 ML VIAL IV STA ×2 (04:29→05:38)
[2019-09-19 05:06] LABS: ABG Base Excess -18.1 mmol/L; ABG HCO3 12 mmol/L (21-25); ABG Oxygen Saturation 98.9 % (94-97); ABG PCO2 38 mmHg (35-45); ABG PO2 247 mmHg (83-108); ABG TCO2 13 mmol/L (19-24); Allen Test Performed? Yes
--- NOTE | 2019-09-19 05:07 | CT ---
EXAMINATION TYPE: CT angio head neck DATE OF EXAM: 09/19/2019 COMPARISON: None HISTORY: ams CT DLP: 830.7 mGycm Automated exposure control for dose reduction was used. CONTRAST: Performed with IV Contrast, patient injected with 65 mL of Isovue 370. There are 3-D post processed i mages. Images were obtained from the aortic arch to the vertex of the brain with IV contrast. There is normal branching pattern of the great vessels on the aortic arch. There is bilateral arteria l flow in the subclavian arteries. There is arterial flow in the common internal and external carotid arteries bilaterally. There is bilateral arterial flow in the vertebral arteries. There is no signif icant plaque formation. There is endotracheal tube noted. There is nasogastric tube noted. I see no s ign of carotid artery or vertebral artery aneurysm or dissection. There is no evidence of hemodynamic stenosis of the cervical carotid and vertebral arteries. There is arterial flow in the anterior middle and posterior cerebral arteries. There is arterial flow in the vertebrobasilar artery system. I see no evidence of intracranial aneurysm or neovascularity. There is no mass effect. There is normal contrast opacification of the venous sinuses. There is left posterior temporal craniotomy defect noted. There is no evidence of intracranial arterial stenosis. There is no evidence of arterial dissection. IMPRESSION: Negative CT angiogram of the neck. Negative CT angiogram of the brain. There is been apparent excisio n of the ring enhancing mass left posterior temporal lobe compared to 08/31/2019 exam.
[2019-09-19] MEDS ORDERED: SODIUM CHLORIDE 0.9% 500 ML 500 ML IV STA (05:09)
[2019-09-19] MEDS ORDERED: SODIUM CHLORIDE 0.9% 2,000 ML IV STA (05:09)
[2019-09-19] MEDS ORDERED: SODIUM BICARB 8.4% 50 ML SYR (1 MEQ/ML) IV STA (05:09)
--- NOTE | 2019-09-19 05:12 | CT ---
EXAMINATION TYPE: CT angio thor/abd pel aorta DATE OF EXAM: 09/19/2019 COMPARISON: HISTORY: [facility] CT DLP: 2033.1 mGycm Automated exposure control for dose reduction was used. CONTRAST: Performed with IV Contrast, patient injected with 80 mL of Isovue 370. There are 3-D post processed images. Images obtained from the thoracic inlet to the hip joints: FINDINGS: Thoracic aorta is intact. There is no evidence of thoracic aortic aneurysm or dissection. There is so me patchy infiltrate and atelectasis at the posterior lung bases. Heart is enlarged. There is endotra cheal tube and nasogastric tube noted. NG tube is in the stomach. I see no filling defect in the pulmonary arteries. There is patency of the celiac artery and superior mesenteric artery. Abdominal aorta has normal size without evidence of aneurysm or dissection. There is minimal plaque in the lower abdominal aorta. Th ere is patency of the renal arteries. There is arterial flow in the iliac and femoral arteries bilate rally. There is no evidence of arterial dissection or hemodynamic stenosis. Liver spleen pancreas stomach appear intact. There are clips from cholecystectomy. Bile ducts are not dilated. Kidneys show satisfactory contrast opacification. There is no hydronephrosis. There is no r etroperitoneal adenopathy. The appendix appears normal. There is no sign of mesenteric edema. There i s no ascites or free air. There is no bowel obstruction. Thoracic and lumbar spine appear intact. Bon y pelvis appears intact. IMPRESSION: There is patchy infiltrate and atelectasis in the lower lung acevedo bilaterally. Cardiomegaly. No sig nificant vascular abnormality.
--- NOTE | 2019-09-19 05:14 | XR ---
EXAMINATION TYPE: XR chest 1V portable DATE OF EXAM: 09/19/2019 COMPARISON: 08/31/2019 HISTORY: Slurred speech TECHNIQUE: FINDINGS: Heart appears enlarged. There is no heart failure. There is some interstitial density and m ild pleural thickening at the lung bases more on the right side. There are chest leads. There is naso gastric tube in the stomach. It is not clear if there is an endotracheal tube. There are chest leads. IMPRESSION: Interstitial infiltrates and subsegmental atelectasis at the lung bases. Mild pleural thi ckening right lateral chest wall. Chest overall not significantly different than last exam. Mild card iomegaly.
[2019-09-19] MEDS ORDERED: PIPERACILLIN-TAZOBACTAM 3.375 GM in SODIUM CHLORIDE 0.9% 100 ML IVPB ONE (05:24)
[2019-09-19 05:26] LABS: Appearance,Urine Cloudy (Clear); Bacteria,Urine Occasional /hpf; Bilirubin,Urine Negative (Negative); Blood,Urine Negative (Negative); Color,Urine Yellow; Glucose,Urine (UA) 3+ (Negative); Ketones,Urine 1+ (Negative); Leukocyte Esterase,Urine Negative (Negative); Nitrite,Urine Positive (Negative); PH, Urine 5.5 (5.0-8.0); Protein,Urine Trace (Negative); RBC,Urine 1 /hpf (0-5); Specific Gravity,Urine 1.016 (1.001-1.035); Squamous Epithelial Cell,Urine <1 /hpf (0-4); WBC,Urine 3 /hpf (0-5)
[2019-09-19] MEDS ORDERED: CHLORHEXIDINE GLUCONATE 15 ML CUP MUCOUS MEM ONE (05:33)
[2019-09-19 05:43] LABS: Acetaminophen <10.0 ug/mL; C Reactive Protein 22.3 mg/L (<10.0); LDH 510 U/L (313-618); Salicylate <1.0 mg/dL
[2019-09-19 05:46] LABS: Amphetamine Screen,Urine Not Detected (NotDetected); Barbiturate Screen,Urine Not Detected (NotDetected); Benzodiazepines Screen,Urine Not Detected (NotDetected); Cocaine Screen,Urine Not Detected (NotDetected); Methadone Screen, Urine Not Detected (NotDetected); Opiate Screen,Urine Not Detected (NotDetected); Oxycodone Screen, Urine Not Detected (NotDetected); Phencyclidine Screen,Urine Not Detected (NotDetected); Tricyclic Antidepressant,Urine Not Detected (NotDetected); Urn Cannabinoid Scrn Not Detected (NotDetected)
[2019-09-19] MEDS ORDERED: MIDAZOLAM HCL 50 MG in SODIUM CHLORIDE 0.9% 40 ML IV SCH (06:00)
[2019-09-19 06:03] VITALS: TEMP 99.1
[2019-09-19 06:11] LABS: D-Dimer 1.16 mg/L FEU (<0.60)
[2019-09-19] MEDS ORDERED: PROPOFOL 1,000 MG in EMPTY BAG 1 BAG IV ONE (07:03)
[2019-09-19 08:23] VITALS: BP 150/72; PULSE 80; RESP 24
== END 2019-09-19 08:10 | disposition other institution (70) ==
LOC: EC 03:03 → SUPCPDRO 03:03 → EC 08:10
DX: G40.901 Epilepsy, unspecified, not intractable, with status epilepticus (principal); R41.82 Altered mental status, unspecified; J96.00 Acute respiratory failure, unspecified whether with hypoxia or hypercapnia; F05 Delirium due to known physiological condition; E87.2 Acidosis; R47.81 Slurred speech; I48.91 Unspecified atrial fibrillation; Z85.118 Personal history of other malignant neoplasm of bronchus and lung; Z98.890 Other specified postprocedural states
CPT/HCPCS: 99291 ×2; 99292 ×2; 31500 ×2; 36556 ×2; 96365 ×2; 96366 ×5; 96368 ×2; 96374 ×2; 96375 ×3; 96376 ×2; 36415; 36600; 93005; 85379; 80053; 82550; 82805; 83605; 83615; 83735; 84100; 84484; 85025; 85384; 85610; 85730; 86140; 81001; 80306; 83520; 80329; 87086; 87077; 87186; 71045; 70496; 70450; 70498; 71275; 74174; J2543; J0330; J1100; J2001; J2250 ×2; J2704; J1953; Q9967; 94002